=== PATIENT | female | born 1970 | race Asian ===

== ENCOUNTER 2017-05-04 20:42 | Emergency (ER) | payer OTHER ==
[~2017-05-04 20:42] MED LIST: KEFLEX PO
== END 2017-05-04 23:00 | disposition home or self-care (01) ==
LOC: CED 20:42 → CFTX 20:42
DX: L01.00 Impetigo, unspecified (principal); E11.9 Type 2 diabetes mellitus without complications; Z79.899 Other long term (current) drug therapy
CPT/HCPCS: 82947; 99283